=== PATIENT | male | born 1965 ===

== ENCOUNTER 2020-07-18 13:30 | Outpatient (CLI) | payer MEDICAID ==
[~2020-07-18] VITALS: Ht 180.3 cm; Wt 77.1 kg
--- NOTE | 2020-07-18 16:45 | Consultation ---
DATE OF CONSULTATION: 07/18/2020 GASTROLOGY CONSULTATION CHIEF COMPLAINT: Stool OB positive. PAST MEDICAL HISTORY: 1. HIV positive. 2. Emphysema. 3. Hypercholesteremia. PAST SURGICAL HISTORY: Cholecystectomy. MEDICATIONS: Please see medication reconciliation list. FAMILY HISTORY: No GI malignancies. 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 Also heroin use about 20 years ago. He smokes about 1-1/2 packs of cigarettes per day. ALLERGIES: Penicillin and sulfa. PHYSICAL EXAMINATION: VITAL SIGNS: Temperature 97.2, blood pressure 133/85, pulse is 77, respirations 20. HEENT: Normocephalic, atraumatic. Sclerae anicteric. NECK: Supple. No evidence of obvious lymphadenopathy. CARDIOVASCULAR: Regular rate and rhythm. Plus S1-S2. LUNGS: Clear to auscultation bilaterally. ABDOMEN: Positive bowel sounds. Soft and nontender. No rebound. No guarding. No peritoneal sign. EXTREMITIES: No cyanosis, no clubbing, no edema. ASSESSMENT AND PLAN: This is a 54-year-old male with diarrhea x1 year, blood in stool, history of colonic polyps, needs endoscopy and colonoscopy given the above findings. The patient was given instruction for colonoscopy. Risks and benefits of procedure were explained to him. We will schedule him as soon as authorization is obtained. Nikos Corral M.D. DR: LIZ JOB#: [id number] CC:
[2020-07-21] MEDS ORDERED: GENVOYA TABLET1 EACH PO (10:48)
[2020-07-21] MEDS ORDERED: ARNUITY ELLIP200 MCG IH (10:48)
[2020-07-21] MEDS ORDERED: ALBUTEROL SULF8.5 G1 INH (10:48)
[2020-07-21] MEDS ORDERED: MULTIVITAMINS1 EAC2 ORAL (10:48)
[2020-07-21] MEDS ORDERED: GABAPENTIN800 MG ORAL (10:48)
[2020-07-21] MEDS ORDERED: VENTOLIN HFA18 GM INH (10:48)
[2020-07-21] MEDS ORDERED: [UNRECOGNIZED DRUG - SUPPLY] INH (10:48)
[2020-07-21] MEDS ORDERED: LIPITOR20 MG ORAL (10:48)
[2020-07-21] MEDS ORDERED: ATROVENT HFA12.9 GM IH (10:48)
[2020-07-21] MEDS ORDERED: WELLBUTRIN XL150 MG ORAL (10:48)
== END 2020-07-18 15:30 | disposition home or self-care (01) ==
LOC: PAN 13:30
DX: R19.7 Diarrhea, unspecified (principal); K92.1 Melena; Z86.010 Personal history of colon polyps; Z88.0 Allergy status to penicillin; Z88.2 Allergy status to sulfonamides; B20 Human immunodeficiency virus [HIV] disease; E78.00 Pure hypercholesterolemia, unspecified; Z90.49 Acquired absence of other specified parts of digestive tract
CPT/HCPCS: G0463